=== PATIENT | male | born 1950 | race Caucasian/White ===

== ENCOUNTER → 2019-06-23 | Outpatient (CLI) | payer MEDICARE, OTHER ==
[~2019-06-23] MED LIST: ATOR20 PO; Aspirin EC81 MG PO; FISH1000 PO; GLUCOSAMINE &1 EACH PO; Iron Supplemen325 MG PO; Multiple Vitam1 EAC1 PO; NAPR500 PO; UBID10
== END | disposition home or self-care (01) ==
LOC: PLD 14:42 → LAB SHORT 14:42
DX: L91.8 Other hypertrophic disorders of the skin (principal); L85.9 Epidermal thickening, unspecified
CPT/HCPCS: 88305

== ENCOUNTER 2022-04-11 08:40 | Day surgery (SDC) | payer MEDICARE, OTHER ==
[~2022-04-11] VITALS: Ht 182.9 cm; Wt 87.4 kg
== END 2022-04-11 10:06 | disposition home or self-care (01) ==
LOC: ORSCSDS 08:40
PROVIDERS: Anesthesiology
PROC: 3E0R33Z Introduction of Anti-inflammatory into Spinal Canal, Percutaneous Approach (ICD-10-PCS; principal; 2022-04-11 09:45)
DX: M51.16 Intervertebral disc disorders with radiculopathy, lumbar region (principal); E78.00 Pure hypercholesterolemia, unspecified; E78.5 Hyperlipidemia, unspecified; I10 Essential (primary) hypertension; Z86.16 Personal history of COVID-19; Z79.82 Long term (current) use of aspirin; Z79.899 Other long term (current) drug therapy
CPT/HCPCS: J1040

== ENCOUNTER 2022-12-23 07:24 | Day surgery (SDC) | payer MEDICARE, OTHER ==
[~2022-12-23] VITALS: Ht 182.9 cm; Wt 88.3 kg
[2022-12-23 10:17] VITALS: BP 114/76
== END 2022-12-23 10:20 | disposition home or self-care (01) ==
LOC: ORSCSDS 07:24
PROVIDERS: Surgery
PROC: 0DBN8ZX Excision of Sigmoid Colon, Via Natural or Artificial Opening Endoscopic, Diagnostic (ICD-10-PCS; principal; 2022-12-23 08:45)
PROC: 0DBL8ZX Excision of Transverse Colon, Via Natural or Artificial Opening Endoscopic, Diagnostic (ICD-10-PCS; principal; 2022-12-23 08:45)
DX: Z12.11 Encounter for screening for malignant neoplasm of colon (principal); Z86.010 Personal history of colon polyps; D12.5 Benign neoplasm of sigmoid colon; D12.3 Benign neoplasm of transverse colon; K57.30 Diverticulosis of large intestine without perforation or abscess without bleeding; E78.5 Hyperlipidemia, unspecified; I10 Essential (primary) hypertension; Z79.82 Long term (current) use of aspirin; Z79.899 Other long term (current) drug therapy
CPT/HCPCS: 88305; J2704; J7120

== ENCOUNTER 2023-01-13 06:02 | Inpatient (IN) | payer MEDICARE, OTHER ==
[~2023-01-13] VITALS: Ht 182.9 cm; Wt 86.2 kg
[2023-01-13] VITALS (14 sets, daily range): BP systolic 119–153; BP diastolic 71–84
[~2023-01-13 06:02] MED LIST changes: +FISH OIL 1,2001 EAC7 PO; -FISH1000 PO; -UBID10; +UBID10 PO
--- NOTE | 2023-01-13 08:52 | NUR ---
01/13/23 0852 Vikas Pedraza I DURING ABDOMINAL SURGICAL PREP, THIS RN NOTED AN AREA OF REDDENED, DRY, FLAKING SKIN, APPROXIMATELY 1 CM X 2CM TO THE INFERIOR ASPECT OF THE UMBILICUS.
--- NOTE | 2023-01-13 11:45 | NUR ---
ARRIVAL PATIENT TO ROOM VIA GURNEY. TRANSFERRED TO BED WITH SLILDER SHEET, TOLERATED VERY WELL. X4 LAP SITES TO ABDOMEN W/ DERMABOND, APPEAR WNL & C/D/I. VSS ON RA. LUNGS CLEAR. PATIENT REPORTS PAIN 08/12 CURRENTLY. ORIENTED TO ROOM & CALL LIGHT. PROVIDED EDUCATION REGARDING CLEAR LIQUID DIET AT THIS TIME.
--- NOTE | 2023-01-13 14:59 | NUR ---
Pt. is awake in bed and welcomes my visit. Family members are present. Pt. is pleasant, and rapport is established. More visitors arrive so this chapain ends our visit. Pt. verbalizes gratitude for the spiritual care visit.
--- NOTE | 2023-01-13 17:43 | NUR ---
SHIFT SUMMARY POD 0 LAPRASCOPIC COLECTOMY. NO ACUTE CHANGES SINCE ARRIVAL TO UNIT. LAP SITES ALL APPEAR WNL W/ DERMABOND. P[ATIENT REPORTS MINIMAL ABDOMINAL PAIN, RATING IT 1/10, TYLENOL SCHEDULED PER EMAR. TOLERATING CLEAR LIQUID DIET, DENIES N/V. VOIDING GOOD AMOUTNS W/O DIFFICULTY. USES CALL LIGHT APPROPRIATELY, IN REACH. PLAN TO STAND/AMBULATE AFTER DINNER. WILL CONTINUE TO MONITOR & REPORT TO ONCOMING RN AT 1900.
[2023-01-14 00:02] VITALS: BP 150/77
[2023-01-14 03:04] VITALS: BP 143/80
[2023-01-14 05:05] LABS: Hematocrit 40.4 % (37.0-53.0); Hemoglobin 14.4 g/dL (13.5-17.5); Mean Corpuscular HGB 34.3 pg (26.0-34.0); Mean Corpuscular HGB Conc 35.6 g/dL (31.5-36.5); Mean Corpuscular Volume 96 fL (80-100); Mean Platelet Volume 9.3 fL (9.1-12.4); Platelet Count 126 K/mm3 (150-400); RDW Coefficient Variation 12.2 % (11.7-14.2); RDW Standard Deviation 42.5 fL (35.1-46.3); White Blood Cell Count 6.81 K/mm3 (4.00-11.30)
[2023-01-14 05:51] LABS: Bun/Creatinine Ratio 12.6 (12.0-20.0); Calcium, Blood 8.7 mg/dL (8.5-10.1); Creatinine, Blood 0.95 mg/dL (0.60-1.20); Magnesium, Blood 2.2 mg/dL (1.6-2.4); Potassium, Blood 3.7 mmol/L (3.5-5.5)
--- NOTE | 2023-01-14 06:05 | NUR ---
SHIFT SUMMARY POD1, LAP COLECTOMY, 4 LAP SITES TO ABD. DERMABOND IN PLACE, C/D. NO SWELLING OR DRAINAGE NOTED. A&OX4, VSS, DENIES N/T, N/V, AND MINIMAL PAIN HE DESCRIBES ABD CRAMP THAT IS RELIEVED BY BREATING TECHNIQUES. MEDICATED W/ OXY 1X DURING NIGHT, SCHEDULED TYLENOL Q6, REPORTED RELIEF. AMB TO BATHROOM X1. REQUESTING TO AMB IN [place] THIS A.M. NO ACUTE CHANGES THIS SHIFT. CALL LIGHT W/IN REACH.
[2023-01-14 07:07] VITALS: BP 150/74
[2023-01-14] MEDS ORDERED: OXYC5 PO (09:05)
--- NOTE | 2023-01-14 13:31 | NUR ---
Pt. is in the process of discharging. Spouse is present. Both sang happy birthday to this [employer]. Pt. and spouse verbalized gratitude for the spiritual care visits.
--- NOTE | 2023-01-14 13:38 | NUR ---
DISCHARGE NOTE: PATIENT AND PATIENTS WERE EDUCATED ON DISCHARGE INSTRUCTIONS. BOTH VERBALIZED UNDERSTANDING OF INSTRUCTIONS AND HAD NO FURTHER QUESTIONS. DR. NOONAN ELECTRONICALLY SENT HIS HARD PERSCRIPTION TO HIS PREFERRED PHARMACY. PAIN IS MANAGED WITH ORAL PAIN MEDICATIONS. HIS ABD HAS X4 LAP SITES WITH WOUND GLUE THAT ARE C/D/I. DENIES NAUSEA AND VOMITING. HE IS TOLERATING PO INTAKE AND IS VOIDING. PATIENT IS DRESSED AND HAS PERSONAL ITEMS IN THE ROOM GATHERED. HE WAS WHEELCHAIRED OUT TO HIS WIFES CAR TO BE TAKEN HOME. IV WAS TAKEN OUT AND WNL.
== END 2023-01-14 13:42 | disposition home or self-care (01) | DRG 331 ==
LOC: SURS 06:02 → PRE IP 07:30 → SURS 11:45
PROVIDERS: ADMIT Surgery
PROC: 0DBM4ZZ Excision of Descending Colon, Percutaneous Endoscopic Approach (ICD-10-PCS; principal; 2023-01-14)
PROC: 8E0W0CZ Robotic Assisted Procedure of Trunk Region, Open Approach (ICD-10-PCS; 2023-01-14)
DX: D12.4 Benign neoplasm of descending colon (principal); N40.0 Benign prostatic hyperplasia without lower urinary tract symptoms; E78.5 Hyperlipidemia, unspecified; I10 Essential (primary) hypertension; Z98.890 Other specified postprocedural states; Z79.82 Long term (current) use of aspirin; Z79.899 Other long term (current) drug therapy
CPT/HCPCS: 36415; 80048; 83735; 85027; 88307; A9270; J0694; J1100; J1644; J1650; J2250; J2370; J2405; J2704; J2795; J3010; J7120

== ENCOUNTER 2024-02-26 17:37 | Emergency (ER) | payer MEDICARE, OTHER ==
[~2024-02-26] VITALS: Ht 182.9 cm; Wt 84.4 kg
[~2024-02-26 17:37] MED LIST changes: +OXYC5 PO
[2024-02-26 19:28] LABS: BASOPHILS ABSOLUTE AUTO 0.02 K/mm3 (0.00-0.23); BASOPHILS PERCENT AUTO 1 % (0-2); EOSINOPHILS ABSOLUTE AUTO 0.06 K/mm3 (0.00-0.68); EOSINOPHILS PERCENT AUTO 1 % (0-6); Hematocrit 40.8 % (37.0-53.0); Hemoglobin 14.6 g/dL (13.5-17.5); IMMATURE GRAN ABSOLUTE AUTO 0.01 K/mm3 (0.00-0.10); IMMATURE GRAN PERCENT AUTO 0 % (0-1); LYMPHOCYTES ABSOLUTE AUTO 1.39 K/mm3 (0.84-5.20); LYMPHOCYTES PERCENT AUTO 33 % (21-46); MONOCYTES PERCENT AUTO 7 % (4-13); Mean Corpuscular HGB 34.8 pg (26.0-34.0); Mean Corpuscular HGB Conc 35.8 g/dL (31.5-36.5); Mean Corpuscular Volume 97 fL (80-100); Mean Platelet Volume 8.9 fL (9.1-12.4); NEUTROPHILS ABSOLUTE AUTO 2.44 K/mm3 (1.96-9.15); NEUTROPHILS PERCENT AUTO 58 % (41-73); Platelet Count 110 K/mm3 (150-400); RDW Coefficient Variation 12.4 % (11.7-14.2); RDW Standard Deviation 44.4 fL (35.1-46.3); Red Blood Cell Count 4.19 M/mm3 (4.30-5.90); White Blood Cell Count 4.22 K/mm3 (4.00-11.30)
[2024-02-26 19:47] LABS: Albumin/Globulin Ratio 1.2 (0.8-1.8); Bilirubin, Total 0.8 mg/dL (0.1-1.0); Bun/Creatinine Ratio 17.1 (12.0-20.0); Calcium, Blood 8.5 mg/dL (8.5-10.1); Creatinine, Blood 0.94 mg/dL (0.60-1.20); Globulin, Blood 3.4 g/dL (2.2-4.0); Potassium, Blood 3.8 mmol/L (3.5-5.5); Total Protein, Blood 7.4 g/dL (6.4-8.2)
[2024-02-26 20:02] LABS: Source, Urine Foley catheter
[2024-02-26 20:05] LABS: Appearance, Urine Hazy (Clear); Bilirubin, Urine Neg (Neg); Blood, Urine 5+ (Neg); Color, Urine Red (P-Yellow); Glucose Qualitative, Urine Neg (Neg); Ketones, Urine Neg (Neg); Leukocyte Esterase, Urine 1+ (Neg); Nitrite, Urine Neg (Neg); Protein, Urine 4+ (Neg); Urobilinogen, Urine NORM (Normal)
[2024-02-26 20:31] LABS: Bacteria Few /hpf; Red Blood Cells, Urine TNTC /hpf (0-2); Squamous Epithelial Cells Few /hpf (Few)
[2024-02-26] MEDS ORDERED: Ciprofloxacin 500 MG Tab PO ONE (20:55)
[2024-02-26] MEDS ORDERED: Cipro500 MG PO (21:02)
[2024-02-26 21:30] VITALS: BP 150/90
== END 2024-02-26 21:50 | disposition home or self-care (01) ==
LOC: ER 17:37
PROVIDERS: Emergency Medicine
DX: R33.9 Retention of urine, unspecified (principal); N41.9 Inflammatory disease of prostate, unspecified; Z79.899 Other long term (current) drug therapy; Z79.82 Long term (current) use of aspirin
CPT/HCPCS: 51702; 51798; 80053; 81001; 85025; 87086; 99283; A9270